=== PATIENT | male | born 1965 | race Caucasian/White ===

== ENCOUNTER 2021-08-08 19:33 | Emergency (ER) | payer OTHER ==
[~2021-08-08 19:33] MED LIST: KEPPRA500 MG PO; MEDROL DOSEPAK 24 MG PO
== END 2021-08-08 21:26 | disposition left against medical advice (07) ==
LOC: ER1 19:33
DX: D49.6 Neoplasm of unspecified behavior of brain (principal)
CPT/HCPCS: 70450; 99285